=== PATIENT | female | born 1995 | race Caucasian/White ===

== ENCOUNTER 2016-06-13 17:27 | Emergency (ER) | payer OTHER ==
[~2016-06-13] VITALS: Ht 177.8 cm; Wt 162.5 kg
[2016-06-13 17:29] VITALS: Ht 177.8 cm; Wt 162.5 kg
[2016-06-13] MEDS ORDERED: IBUPROFEN 800 MG TAB PO ONE (19:00)
--- NOTE | 2016-06-13 19:39 | ERD ---
ER Documentation Chief Complaint Date/Time DATE: 06/13/16 TIME: 19:37 Chief Complaint chest pain , body ache since tuesday HPI This 20-year-old female presents to the emergency room for evaluation of chest pain. The patient states that she has had chest pain for 3 days duration. The patient does state she has a history of anxiety and has been under a lot of stress recently. She does say she had an anxiety attack on Tuesday. She denies any shortness of breath or palpitations associated with this chest pain and states is worse with deep inspiration. The patient came to the ER today for evaluation. ROS All systems reviewed and are negative except as per history of present illness. Allergies Allergies: Coded Allergies: No Known Allergy (Unverified , 06/13/16) PMhx/Soc Medical and Surgical Hx: pt denies Medical Hx, pt denies Surgical Hx Hx Alcohol Use: Yes Hx Substance Use: Yes Hx Tobacco Use: No Smoking Status: Never smoker Physical Exam Vitals Vital Signs Date Time Temp Pulse Resp B/P Pulse Ox O2 Delivery O2 Flow Rate FiO2 06/13/16 17:29 98.3 92 18 171/91 97 Physical Exam Const: No acute distress Head: Atraumatic Eyes: Normal Conjunctiva ENT: Normal External Ears, Nose and Mouth. Neck: Full range of motion..~ No meningismus. Resp: Clear to auscultation bilaterally Cardio: Regular rate and rhythm, no murmurs Abd: Soft, non tender, non distended. Normal bowel sounds Skin: No petechiae or rashes Back: No midline or flank tenderness Ext: No cyanosis, or edema Neur: Awake and alert Musculoskeletal: Tender to palpation of anterior chest wall Psych: Normal Mood and Affect Results 24 hrs Current Medications Medications (Trade) Dose Ordered Sig/Makeda Route PRN Reason Start Time Stop Time Status Last Admin Dose Admin Ibuprofen (Motrin) 800 mg ONCE ONCE PO 06/13/16 19:00 06/13/16 19:01 DC 06/13/16 18:48 Procedures/MDM EKG: Rate/Rhythm: [Normal Sinus Rhythm] QRS, ST, T-waves: [No changes consistent w/ acute ischemia] Impression: [No evidence of ischemia or arrhythmia] Chest X-ray 1V Interpreted by me: Soft Tissue: No acute abnormalities Bones: No acute abnormalities Mediastinum/Cardiac Silhouette/Lungs: [No acute abnormalities] This 20-year-old female presents to the ER for evaluation of chest pain. When I evaluated her she was hemodynamically stable. She was not hypoxic, not tachycardic. The patient does have a history of anxiety and states this feels similar to previous anxiety. Her EKG is nonischemic. Chest x-ray is clear. My suspicion for pulmonary and was not was low at this time. The patient has a heart score of 0. The patient likely suffering from costochondritis versus anxiety as she does have tenderness to palpation which reproduces chest pain when I palpate her anterior chest wall. She was given Motrin in the emergency room and will be discharged home with a prescription for Motrin at this time. Departure Diagnosis: Primary Impression: Chest pain Additional Impression: Costochondritis Condition: Stable HALEIGH RAY DO Jun 13, 2016 19:39
[2016-06-13] MEDS ORDERED: IBUP800T25 PO (19:40)
--- NOTE | 2016-06-13 20:42 | RADRPT ---
PROCEDURE: Portable chest x-ray. CLINICAL INDICATION: Chest pain. TECHNIQUE: Portable AP view of the chest. COMPARISON: None. FINDINGS: No pulmonary edema or conolidation is identified. The cardiac silhouette is magnified. No pleural effusion is seen. There is no pneumothorax. IMPRESSION: 1. No evidence of acute cardiopulmonary disease. RPTAT: HTAR .Gelacio Nguyen MD, MD Date Time Electronically viewed and signed by .Gelacio Nguyen MD, on 06/13/2016 20:42 .R/
== END 2016-06-13 20:50 | disposition home or self-care (01) ==
LOC: FTE 17:27
DX: R07.9 Chest pain, unspecified (principal); M94.0 Chondrocostal junction syndrome [Tietze]
CPT/HCPCS: 71010; 93005; Z7502; Z7610